=== PATIENT | female | born 2000 | race Caucasian/White ===

== ENCOUNTER 2023-07-23 06:39 | Emergency (ER) | payer MEDICAID, SELFPAY ==
[2023-07-23 06:56] VITALS: BP 151/101; PULSE 81; RESP 18; TEMP 37.1; O2SAT 98; BMI 21.6
[2023-07-23 06:59] LABS: Basophils Percent Auto 0.1 % (0.0-3.0); Hematocrit 44.7 % (33.0-51.0); Hemoglobin* 15.1 gm/dL (12.0-16.0); Immature Granulocytes Pct Auto 0.1 %; Lymphocytes Percent Auto 23.6 % (20-44); Mean Corpuscular HGB Conc 34 gm/dL (32-36); Mean Corpuscular Hemoglobin 30 pg (26-34); Mean Corpuscular Volume 88 fL (80-100); Monocytes Percent Auto 4.5 % (0.0-11.0); Neutrophils Percent Auto 71.7 % (42.0-72.0); Platelet Count* 257 K/uL (140-440); RDW Coefficient of Variation % 12.2 % (11.5-15.5); Red Blood Count 5.08 m/uL (4.00-5.20); White Blood Count* 13.66 K/uL (4.50-11.00)
[2023-07-23 07:01] LABS: Lactate* 1.3 mmol/L (0.5-1.9)
--- NOTE | 2023-07-23 07:06 | ED_ITS ---
HPI - General Adult General Time Seen by Provider: 07:06 Date Seen: 07/23/23 Chief complaint: Nausea/Vomiting Stated complaint: vomiting Time Seen by Provider: 07/23/23 06:42 Source: patient and RN notes reviewed Mode of arrival: ambulatory Limitations: no limitations History of Present Illness HPI narrative: This 23yo female with history of cyclic vomiting comes in with 4-5 days of vomiting, states that this is consistent with her history of this disorder. Last used marijuana 5 days ago. She was seen in [place] on Wednesday, returned Wednesday. On Wednesday she got a L of normal saline and was sent home. When she returned on Wednesday, they told her there was nothing further for them to do in she was given a prescription for Reglan. She has tried the Reglan and she feels it is not really helping, maybe even making things worse when she is trying to take it on an empty stomach. The Zofran 0 DT is really a difficult for her when she is in the midst of this because when she is vomiting, stating trying to take this medicine to have it dissolving her mouth on a dry mouth that it makes it worse. She has not had any fevers but at times is felt chilled and has had shakes at times with this. She has had no bowel movement the last couple of days but has not been able to eat. She has had no abdominal pain but does note that she is feeling a bit sore from vomiting. There has been no blood in the vomit. She is on oral contraceptives. Related Data Home Medications Medication Instructions Recorded Confirmed metoclopramide HCl 10 mg tablet 10 mg PO QID 07/23/23 07/23/23 Previous Rx's Medication Instructions Recorded olanzapine 5 mg tablet 5 mg PO BID PRN #10 tabs 07/23/23 Allergies Allergy/AdvReac Type Severity Reaction Status Date / Time amoxicillin AdvReac Verified 07/23/23 06:59 Review of Systems Status of ROS: Reports: 6 or more systems reviewed and unremarkable except as noted in History and below [facility] Medical History Cyclic vomiting syndrome ?R11.15 - Cyclical vomiting syndrome unrelated to migraine (ICD-10) Social History Smoking Status: Current every day smoker Second hand tobacco smoke exposure: Yes How often do you have a drink containing alcohol: never AUDIT-C Alcohol total score: 0 Non-prescribed substance use: marijuana (any form) Exam Const: Vital Signs, click to edit/add: Vital Signs - 24 hr 07/23/23 06:56 Temperature 98.8 F Pulse Rate [Pulse Oximeter] 81 Respiratory Rate 18 Blood Pressure [Ri ght Upper Arm] 151/101 H Pulse Oximetry 98 Oxygen Delivery Me thod Room Air This is a very pleasant 23-year-old female. She was initially in the bathroom when I attempted to go see her at 1st. Did hear her retch a bit. She is very pleasant, no apparent distress. She has conjugate gaze, sq appear clear. Symmetrical facial function. Lungs are clear, good air entry, no wheezing or crackles. CV regular rate and rhythm, no murmur, normal S1-S2, no S3-S4. Abdomen is flat, soft, bowel sounds present, no organomegaly, no distention, nontender, no rebound or guarding. She is ambulatory in the ED of her own accord. Skin visualized without rash. Documenting provider has reviewed patient's vital signs: yes Course Course ED Course: Patient is aware that we really truly have no ?fix? for this. We can try to treat her symptoms, obviously give her IV fluids. Nursing staff did collect urine, noted it looked pretty concentrated. I have ordered a 2 L of fluids. On discussion of different treatment she has tried, she really does actually like Zyprexa. She feels that most IV treatments do help her. She states the problem lies is when she goes home and has to try to take something orally. She is not expecting hospitalization, we did discuss that we do not hospitalize unless there is an indication like significant electrolyte disturbances. Will confirm negative status. Will get basic labs. Likely discharge to home with recommendations for avoidance of further THC/marijuana. Patient has benign clinical exam, do not feel any abdominal imaging is necessary. Reevaluation(s) Time of Reevaluation #1: 07:56 Reevaluation #1: Reviewed with patient her labs are reassuring. Urine is concentrated in she is getting fluids. She just got the Zyprexa, is going to try to rest, maybe already feels a bit better. She will be getting a 2 L of fluids. Will have her rest for the time being and likely discharge to home. Will have nursing staff report the oncoming provider if her nausea and vomiting are not controlled with the Zyprexa. Vital Signs Vital signs: Initial Vital Signs Temperature 98.8 F 07/23/23 06:56 Temperature Source Temporal Artery Scan 07/23/23 06:56 Pulse Rate 81 07/23/23 06:56 Respiratory Rate 18 07/23/23 06:56 Blood Pressure 151/101 H 07/23/23 06:56 Blood Pressure Mean 117 H 07/23/23 06:56 Blood Pressure Position Sitting 07/23/23 06:56 Pulse Oximetry 98 07/23/23 06:56 Oxygen Delivery Method Room Air 07/23/23 06:56 Vital Signs Temperature 98.8 F 07/23/23 06:56 Pulse Rate 81 07/23/23 06:56 Respiratory Rate 18 07/23/23 06:56 Blood Pressure 151/101 H 07/23/23 06:56 Pulse Oximetry 98 07/23/23 06:56 Oxygen Delivery Method Room Air 07/23/23 06:56 Temperature 98.8 F 07/23/23 06:56 Pulse Rate 82 07/23/23 09:24 Respiratory Rate 12 07/23/23 09:24 Blood Pressure 108/72 07/23/23 09:24 Pulse Oximetry 100 07/23/23 09:24 Oxygen Delivery Method Room Air 07/23/23 09:24 Medications Administered Medications: Discontinued Medications Generic Name Dose Route Start Last Admin Trade Name Freq PRN Reason Stop Dose Admin Sodium Chloride 1,000 mls @ 1,000 mls/hr 07/23/23 07:06 07/23/23 08:14 0.9 % Sodium Chloride 1000 Ml IV 07/23/23 08:05 Infused .Q1H JOSLYN Infusion Lactated Ringer's 1,000 mls @ 1,000 mls/hr 07/23/23 07:28 07/23/23 09:27 Lactated Ringers 1000 Ml IV 07/23/23 08:27 Infused .Q1H ONE Infusion Olanzapine 5 mg 07/23/23 07:15 07/23/23 07:25 Olanzapine 5 Mg/Ml Inj IVP 07/23/23 07:16 5 mg ONCE ONE Administration Medical Decision Making Lab Data Lab results reviewed: Yes I reviewed the patient's lab results Labs: Lab Results 07/23/23 07/23/23 Range/Units 06:50 07:15 WBC 13.66 H (4.50-11.00) K/uL RBC 5.08 (4.00-5.20) m/uL Hgb 15.1 (12.0-16.0) gm/dL Hct 44.7 (33.0-51.0) % MCV 88 (80-100) fL MCH 30 (26-34) pg MCHC 34 (32-36) gm/dL RDW Coeff of Dominga 12.2 (11.5-15.5) % Plt Count 257 (140-440) K/uL Neut % (Auto) 71.7 (42.0-72.0) % Lymph % (Auto) 23.6 (20-44) % [place] % (Auto) 4.5 (0.0-11.0) % Eos % (Auto) 0.0 (0.0-7.0) % Baso % (Auto) 0.1 (0.0-3.0) % Neut # (Auto) 9.80 H (1.7-7.0) K/uL Lymph # (Auto) 3.20 H (0.90-2.90) K/uL [place] # (Auto) 0.60 (0.00-0.90) K/UL Eos # (Auto) 0.00 (0.00-0.50) K/uL Baso # (Auto) 0.00 (0.00-0.30) K/uL Abs Immat Gran (auto) 0.00 (0.00-0.30) K/uL Imm/Tot Granulo (auto) 0.1 % Sodium 137 (135-149) mmol/L Potassium 3.5 L (3.6-5.1) mmol/L Chloride 99 (96-114) mmol/L Carbon Dioxide 23 (20-32) mmol/L Anion Gap 15 (7-15) mEq/L BUN 21 (5-24) mg/dL Creatinine 0.7 (0.5-1.5) mg/dL Estimated Creat Clear 111.51 Estimated GFR 124 ml/min Glucose 126 H (60-115) mg/dL Lactate 1.3 (0.5-1.9) mmol/L Calcium 10.0 (8.4-10.6) mg/dL Urine Color Dark yellow (Yellow) Urine Appearance Slightly Cloudy A (Clear) Urine pH 6.0 (5.0-8.5) Ur Specific [place] >= 1.030 (1.000-1.030) Urine Protein 2+ A (Negative) Urine Glucose (UA) Negative (Negative) Urine Ketones 1+ A (Negative) Urine Blood 1+ A (Negative) Urine Nitrite Negative (Negative) Urine Bilirubin 1+ A (Negative) Urine Urobilinogen 1.0 (0.2-1.0) Ur Leukocyte Esterase Negative (Negative) Urine RBC 2-5 A (0-2) Urine WBC 0-2 (0-5) Ur Squamous Epith Cells Many A (None-Few) Urine Bacteria Moderate A (None) Urine HCG, Qual Negative (Negative) Urine Opiates Screen Negative (Negative) Ur Oxycodone Screen Negative (Negative) Urine Methadone Screen Negative (Negative) Ur Barbiturates Screen Negative (Negative) U Tricyclic Antidepress Negative (Negative) Ur Phencyclidine Scrn Negative (Negative) Ur Amphetamines Screen Negative (Negative) U Methamphetamines Scrn Negative (Negative) U Benzodiazepines Scrn Negative (Negative) Urine Cocaine Screen Negative (Negative) U Marijuana (THC) Screen POSITIVE A (Negative) Ur Drug Screen Comment See Note Discharge Plan Discharge Clinical Impression: Cyclical vomiting syndrome Patient Disposition: Home, Self-Care Condition: Stable Instructions: Cyclic Vomiting Syndrome (ED) Additional Instructions: Can try the Zyprexa at home and see if this benefit you further. Encourage you to take small sips of fluids, 1-2 tsp every 5-10 minutes while awake. This approach with small amounts of liquids may help so that you do not have any significant volume in your stomach and thus, maybe less likely to vomit. May move back to solids or your regular diet as you feel better. You really need to refrain from THC/marijuana use. Do recommend that you follow-up with your primary care provider within the next couple of days, discussed possible further medicines to have on hand to help you manage this if you should have further episodes. Activity Level: Activity as Tolerated Prescriptions: New olanzapine 5 mg tablet 5 mg PO BID PRNQty: 10 0RF No Action metoclopramide HCl 10 mg tablet 10 mg PO QID Stand Alone Forms: virtual tweens ltdth Info Instructions
[2023-07-23 07:07] LABS: Slide Review Reflex No
[2023-07-23 07:22] LABS: Chloride* 99 mmol/L (96-114); Potassium* 3.5 mmol/L (3.6-5.1); Sodium* 137 mmol/L (135-149)
[2023-07-23 07:24] LABS: Creatinine* 0.7 mg/dL (0.5-1.5); Est. Creatinine Clearance* 111.51; Estimated Glomerular Filt Rate 124 ml/min
[2023-07-23] MEDS: 0.9 % SODIUM CHLORIDE 1000 ml 1,000 ML IV (07:24)
[2023-07-23 07:25] LABS: Anion Gap 15 mEq/L (7-15); Blood Urea Nitrogen* 21 mg/dL (5-24); Carbon Dioxide* 23 mmol/L (20-32); Glucose* 126 mg/dL (60-115)
[2023-07-23] MEDS: OLANZapine 5 MG/ML inj IVP (07:25)
[2023-07-23 07:27] LABS: Appearance Urine Slightly Cloudy (Clear); Bilirubin Urine 1+ (Negative); Blood Urine 1+ (Negative); Color Urine Dark yellow (Yellow); Glucose Urine Negative (Negative); Ketones Urine 1+ (Negative); Leukocyte Esterase Urine Negative (Negative); Nitrite Urine Negative (Negative); Protein Urine 2+ (Negative); Specific Gravity Urine >= 1.030 (1.000-1.030)
[2023-07-23 07:28] LABS: Ur HCG Qualitative* Negative (Negative)
[2023-07-23 07:31] LABS: Amphetamine Screen Urine Negative (Negative); Barbiturate Screen Urine Negative (Negative); Benzodiazepines Screen Urine Negative (Negative); Cannabinoid Screen Urine POSITIVE (Negative); Cocaine Screen Urine Negative (Negative); Methadone Screen Urine Negative (Negative); Methamphetamines Screen Urine Negative (Negative); Opiate Screen Urine Negative (Negative); Oxycodone Screen Urine Negative (Negative); Phencyclidine Screen Urine Negative (Negative); Tricyclic Antidepressant Urine Negative (Negative)
--- OUTSIDE RECORDS SUMMARY | 2023-07-23 07:31 | XMS_ITS | Referral Summary ---
Author Name Unknown Organization [facility] Address [address] [place] [id number] Care Team Providers Care Benefits Technician Name Role Phone No Ref-Primary, Physician Primary Care Provider Allergies Active Allergy Reactions Criticality Noted Date Comments Amoxicillin 08/11/2016 Medications Medication Sig Dispensed Refills Start Date End Date Status Etonogestrel (NEXPLANON SC) 0 Active metoclopramide (REGLAN) 10 MG tablet Take 1 tablet (10 mg) by mouth 4 times daily (before meals and nightly) 20 tablet 0 03/04/2021 Active promethazine (PHENERGAN) [address] 1 suppository (25 mg) rectally every 6 hours as needed for nausea 10 suppository 0 03/05/2021 Active Immunizations Name Administration Dates Next Due DTAP (<7y) 02/06/2004, 1,1999,1999,1999 HEPATITIS A (PEDS 12M-18Y) 08/06/2015 HIB (PRP-T) 06/28/2000,03/02/2000,1999 HPV9 05/05/2017,08/06/2015,07/11/2013 Hepatitis B, Peds 1999, 9,1999,1998 Influenza Vaccine >6 months,quad, PF 05/05/2017 MMR 02/06/2004,06/28/2000 Meningococcal ACWY (Menactra??) 01/09/2011 Meningococcal ACWY (Menveo??) 08/06/2015 Poliovirus, inactivated (IPV) 02/06/2004 ,06/28/2000,1999,1998 TDAP Vaccine (Adacel) 01/09/2011 Varicella 08/29/2009,03/02/2000 Social History Tobacco Use Types Packs/Day Years Used Date Smoking Tobacco: Every Day Cigarettes 0.5 Smokeless Tobacco: Never Alcohol Use Standard Drinks/Week Comments Yes 0 (1 standard drink = 0.6 oz pur e alcohol) Adolescent Education Answer Date Record ed Getting School Help Needed Not on file 03/29 Sex and Gender Information Value Date Recorded Sex Assigned at Not on file Gender Identity Not on file Sexual Orientation Not on file Last Filed Vital Signs Vital Sign Reading Time Taken Comments Blood Pressure 122/77 03/06/2021 10:17 AM CDT Pulse 71 03/06/2021 1:00 PM CDT Temperature 36.9 ??C (98.4 ??F) 03/06/2021 10:17 AM C DT Respiratory Rate 14 03/06/2021 1:00 PM CDT Oxygen Saturation 98% 03/06/2021 10:17 AM CDT Inhaled Oxygen Concentration - - Weight 73.5 kg (162 lb) 03/03/2021 7:04 PM CDT Height 165.1 cm (5' 5) 03/03/2021 7:04 PM CDT Body Mass Index 26.96 03/03/2021 7:04 PM CDT Plan of Treatment Not on file Care Teams Benefits Technician Relationship Specialty Start Date End Date No Ref-Primary, Physician PCP - General 03/26/17
--- OUTSIDE RECORDS SUMMARY | 2023-07-23 07:31 | XMS_ITS | Encounter Summary ---
Author Name Unknown Organization [facility] Address [address] [place] [id number] Care Team Providers Care Modern Dancer Name Role Phone No Ref-Primary, Physician Primary Care Provider Encounter Details Date Type Department Care Team (Late st Contact Info) Description 03/20/2021 Documentation Only INTERFACED REPORT Unknown, Provider Social History Tobacco Use Types Packs/Day Years Used Date Smoking Tobacco: Every Day Cigarettes 0.5 Smokeless Tobacco: Never Alcohol Use Standard Drinks/Week Comments Yes 0 (1 standard drink = 0.6 oz pur e alcohol) Sex and Gender Information Value Date Recorded Sex Assigned at Not on file Gender Identity Not on file Sexual Orientation Not on file COVID-19 Exposure Response Date Recorded In the last month, have you been in contact with someone who was confirmed or suspected to have Coronavirus / COVID-19? No / Unsure 03/05/2021 2:41 PM CDT documented as of this encounter Plan of Treatment Not on file documented as of this encounter Visit Diagnoses Not on filedocumented in this encounter Care Teams Modern Dancer Relationship Specialty Start Date End Date No Ref-Primary, Physician PCP - General 03/26/17 documented as of this encounter
--- OUTSIDE RECORDS SUMMARY | 2023-07-23 07:31 | XMS_ITS | Encounter Summary ---
Author Name Unknown Organization [facility] Address [address] [place] [address] Care Team Providers Care Personal Care Attendant Name Role Phone No Ref-Primary, Physician Primary Care Provider Encounter Details Date Type Department Care Team (Late st Contact Info) Description 03/04/2021 Documentation Only INTERFACED REPORT Unknown, Provider Social [...] on filedocumented in this encounter Care Teams Personal Care Attendant Relationship Specialty Start Date End Date No Ref-Primary, Physician PCP - General 03/26/17 documented as of this encounter
--- OUTSIDE RECORDS SUMMARY | 2023-07-23 07:31 | XMS_ITS | Clinical Summary ---
Author Name Unknown Organization [facility] Address [address] [place] [id number] Care Team Providers Care Silk Spreader Name Role Phone No Ref-Primary, Physician Primary [...] 03/03/2021 7:04 PM CDT Plan of Treatment Health Maintenance Due Date Last Done Comments ADVANCE CARE PLANNING 1999 ANNUAL REVIEW OF HM ORDERS 1999 CHLAMYDIA SCREENING 1999 COVID-19 Vaccine (#1) 1999 Pneumococcal Vaccine: Pediatrics (0 to 5 Years) and At-Risk Patients (6 to 64 Years) (1 of 2 - PCV) 2005 HIV SCREENING 2014 HEPATITIS C SCREENING 2017 YEARLY PREVENTIVE VISIT 09/16/2018 09/16/2017 PAP 02/13/2020 INFLUENZA VACCINE (#1) 2023 8, 05/05/2017, 05/05/2017, Additional history exists PHQ-2 (once per calendar year) 2023 DTAP/TDAP/TD IMMUNIZATION (8 - Td or Tdap) 05/15/2030 05/15/2020, 01/09/2011, 02/06/2004, Additional history exists IPV IMMUNIZATION Completed 02/06/2004, , 1999, Additional history exists MENINGITIS IMMUNIZATION Completed 08/06/2015, 01/09 HPV IMMUNIZATION Completed 05/05/2017, , 09/08/2013, Additional history exists HEPATITIS B IMMUNIZATION Completed 019, 1999, 1999, Additional history exists RSV MONOCLONAL ANTIBODY Aged Out No l onger eligible based on patient's age to complete this topic Care Teams Silk Spreader Relationship Specialty Start Date End Date No Ref-Primary, Physician PCP - General 03/26/17
--- OUTSIDE RECORDS SUMMARY | 2023-07-23 07:31 | XMS_ITS | Patient Health Record ---
Author Name Unknown Organization [facility] Address [address] [place] [address] Care Team Providers Care Corporate Pilot Name Role Phone Kwmae Simon Primary Care Provider Unavailab le ALLERGIES Allergen (clinical drug ingredient) Drug/Non Drug Allergy documented on EMR Reaction Allergy Type Onset Date Status amoxicillin Amoxicillin Childhood Allergy Drug Allergy Active REASON FOR REFERRAL No Information MEDICATIONS Medication SIG (Take, Route, Fr equency, Duration) Notes Start Date End Date Status Adderall 20 MG 1 tablet Orally once daily Active SOCIAL HISTORY Tobacco Use: Social History Observation Description Date Details (start date - stop date) Current Smoker NA - NA Sex Assigned At : Social History Observation Description Sex Assigned At Unknown Tobacco Use/Smoking Question Answer Notes Are you a current smoker PROBLEMS Problem Type ICD Code Onset Dates Problem Status W/U Status Risk SNOMED Code Notes Problem Abnormal uterine bleeding (AUB) (N93.9) Active confirmed [id number] PLAN OF TREATMENT No Information Insurance Providers Payer Name Payer Address Payer Phone Subscriber Number Group Number Insured Name Patient Relationship to Insured Coverage Start Date Coverage End Date UMR (INS BILL) [address] [address] [place] [address] [id number] [phone] Selma Hoffman Self - patient is the insured MEDICAL (GENERAL) HISTORY Medical History History ICD Code ADHD Surgical History Surgery Date(Month/Year) Left Middle Finger Fx 2017
[2023-07-23 07:41] LABS: WBC Urine 0-2 (0-5)
[2023-07-23 07:42] LABS: Bacteria Urine Moderate; Squamous Epithelial Cell Urine Many (None-Few)
[2023-07-23] MEDS: LACTATED RINGERS 1000 ML 1,000 ML IV (08:13)
[2023-07-23 08:33] VITALS: O2SAT 99
[2023-07-23 08:34] VITALS: BP 112/67; PULSE 82; O2SAT 100
[2023-07-23 09:24] VITALS: BP 108/72; PULSE 82; RESP 12; O2SAT 100
== END 2023-07-23 09:36 | disposition home or self-care (01) ==
PROVIDERS: Emergency Provider Family Medicine
DX: R11.15 Cyclical vomiting syndrome unrelated to migraine (principal)
CPT/HCPCS: 36415; 80048; 80306; 81001; 81025; 83605; 85025; 87086; 94761; 96374; 99283; 99284; J7030; J7120

== ENCOUNTER 2023-08-07 06:38 | Emergency (ER) | payer MEDICAID, SELFPAY ==
[2023-08-07 06:44] VITALS: BP 161/98; PULSE 89; RESP 18; TEMP 37.1; O2SAT 97; BMI 21.6
--- NOTE | 2023-08-07 07:05 | ED_ITS ---
HPI - Nausea/Vomiting/Diarrhea General Chief complaint: Nausea/Vomiting <Benji Vann MD - Last Filed: 08/07/23 07:12> Stated complaint: nausea vomiting <Benji Vann MD - Last Filed: 08/07/23 07:12> Time Seen by Provider: 08/07/23 06:43 <Benji Vann MD - Last Filed: 08/07/23 07:12> History of Present Illness HPI Narrative: Patient is a 23-year-old woman with cyclic vomiting syndrome who is not had any marijuana consumption since she was here last approximately 10 days ago. Over last several days she has had nausea vomiting without diarrhea. She has had no fevers no chills no night sweats. She has no dysuria. She states that she can not keep anything down and that her vomiting is refractory to outpatient therapy. She feels very dehydrated. <Benji Vann MD - Last Filed: 08/07/23 07:12> Related Data Home medications: Home Medications Medication Instructions Recorded Confirmed metoclopramide HCl 10 mg tablet 10 mg PO QID 07/23/23 07/23/23 Previous Rx's Medication Instructions Recorded olanzapine 5 mg tablet 5 mg PO BID PRN #10 tabs 07/23/23 <Benji Vann MD - Last Filed: 08/07/23 07:12> Allergies/Adverse reactions: Allergies Allergy/AdvReac Type Severity Reaction Status Date / Time amoxicillin AdvReac Verified 07/23/23 06:59 <Benji Vann MD - Last Filed: 08/07/23 07:12> Review of Systems Status of ROS: Reports: 10 or more systems reviewed and unremarkable except as noted in History and below <Benji Vann MD - Last Filed: 08/07/23 07:12> [facility] Medical History: Medical History Cyclic vomiting syndrome ?R11.15 - Cyclical vomiting syndrome unrelated to migraine (ICD-10) <Benji Vann MD - Last Filed: 08/07/23 07:12> Social History: Social History Smoking Status: Current every day smoker Second hand tobacco smoke exposure: Yes How often do you have a drink containing alcohol: never AUDIT-C Alcohol total score: 0 Non-prescribed substance use: marijuana (any form) <Benji Vann MD - Last Filed: 08/07/23 07:12> Exam Narrative: Exam Narrative: EXAM GENERAL: Patient appears to be in moderate distress with dehydration. EYES: No scleral icterus. LYMPH: No supraclavicular or cervical lymphadenopathy. SKIN: Visible skin seen during exam normal or with benign process only. EXT: No dependent lower extremity pedal edema. HEART: Regular rate and rhythm with no murmurs, rubs, or gallops. LUNGS: Clear to auscultation bilaterally with no crackles or wheezes. ABD: Soft, non tender, non distended. PSYCH: Good eye contact, speech is not pressured. <Benji Vann MD - Last Filed: 08/07/23 07:12> Const: Vital Signs, click to edit/add: Vital Signs - 24 hr 08/07/23 06:44 Temperature 98.8 F Pulse Rate [Pulse Oximeter] 89 Respiratory Rate 18 Blood Pressure [Ri ght Upper Arm] 161/98 H Pulse Oximetry 97 Oxygen Delivery Me thod Room Air <Benji Vann MD - Last Filed: 08/07/23 07:12> Vital Signs, click to edit/add: Vital Signs - 24 hr 08/07/23 06:44 Temperature 98.8 F Pulse Rate [Pulse Oximeter] 89 Respiratory Rate 18 Blood Pressure [Ri ght Upper Arm] 161/98 H Pulse Oximetry 97 Oxygen Delivery Me thod Room Air <Jones De La Rosa DO - Last Filed: 08/07/23 09:42> Course Course ED Course: Will start with CBC CMP amylase and begin hydration with normal saline. Did give her 4 mg of IV Zofran to start with. <Benji Vann MD - Last Filed: 08/07/23 07:12> Vital Signs Vital signs: Initial Vital Signs Temperature 98.8 F 08/07/23 06:44 Temperature Source Temporal Artery Scan 08/07/23 06:44 Pulse Rate 89 08/07/23 06:44 Respiratory Rate 18 08/07/23 06:44 Blood Pressure 161/98 H 08/07/23 06:44 Blood Pressure Mean 119 H 08/07/23 06:44 Blood Pressure Position Sitting 08/07/23 06:44 Pulse Oximetry 97 08/07/23 06:44 Oxygen Delivery Method Room Air 08/07/23 06:44 Vital Signs Temperature 98.8 F 08/07/23 06:44 Pulse Rate 89 08/07/23 06:44 Respiratory Rate 18 08/07/23 06:44 Blood Pressure 161/98 H 08/07/23 06:44 Pulse Oximetry 97 08/07/23 06:44 Oxygen Delivery Method Room Air 08/07/23 06:44 Temperature 98.8 F 08/07/23 06:44 Pulse Rate 89 08/07/23 06:44 Respiratory Rate 18 08/07/23 06:44 Blood Pressure 161/98 H 08/07/23 06:44 Pulse Oximetry 97 08/07/23 06:44 Oxygen Delivery Method Room Air 08/07/23 06:44 <Benji Vann MD - Last Filed: 08/07/23 07:12> Initial Vital Signs Temperature 98.8 F 08/07/23 06:44 Temperature Source Temporal Artery Scan 08/07/23 06:44 Pulse Rate 89 08/07/23 06:44 Respiratory Rate 18 08/07/23 06:44 Blood Pressure 161/98 H 08/07/23 06:44 Blood Pressure Mean 119 H 08/07/23 06:44 Blood Pressure Position Sitting 08/07/23 06:44 Pulse Oximetry 97 08/07/23 06:44 Oxygen Delivery Method Room Air 08/07/23 06:44 Vital Signs Temperature 98.8 F 08/07/23 06:44 Pulse Rate 89 08/07/23 06:44 Respiratory Rate 18 08/07/23 06:44 Blood Pressure 161/98 H 08/07/23 06:44 Pulse Oximetry 97 08/07/23 06:44 Oxygen Delivery Method Room Air 08/07/23 06:44 Temperature 98.8 F 08/07/23 06:44 Pulse Rate 89 08/07/23 06:44 Respiratory Rate 18 08/07/23 06:44 Blood Pressure 161/98 H 08/07/23 06:44 Pulse Oximetry 97 08/07/23 06:44 Oxygen Delivery Method Room Air 08/07/23 06:44 <Jones De La Rosa DO - Last Filed: 08/07/23 09:42> Medications Administered Medications: Discontinued Medications Generic Name Dose Route Start Last Admin Trade Name Freq PRN Reason Stop Dose Admin Haloperidol Lactate 5 mg 08/07/23 08:28 08/07/23 08:46 Haloperidol 5 Mg/Ml Inj IV 08/07/23 08:29 5 mg ONCE ONE Administration Sodium Chloride 1,000 mls @ 1,000 mls/hr 08/07/23 07:04 08/07/23 08:47 0.9 % Sodium Chloride 1000 Ml IV 08/07/23 08:03 Infused .Q1H JOSLYN Infusion Lactated Ringer's 1,000 mls @ 1,000 mls/hr 08/07/23 08:28 08/07/23 08:46 Lactated Ringers 1000 Ml IV 08/07/23 09:27 1,000 mls/hr .Q1H ONE Administration Ondansetron HCl 4 mg 08/07/23 07:03 08/07/23 07:36 Ondansetron 2 Mg/Ml Inj IVP 08/07/23 07:04 4 mg ONCE ONE Administration <Benji Vann MD - Last Filed: 08/07/23 07:12> Discontinued Medications Generic Name Dose Route Start Last Admin Trade Name Freq PRN Reason Stop Dose Admin Haloperidol Lactate 5 mg 08/07/23 08:28 08/07/23 08:46 Haloperidol 5 Mg/Ml Inj IV 08/07/23 08:29 5 mg ONCE ONE Administration Sodium Chloride 1,000 mls @ 1,000 mls/hr 08/07/23 07:04 08/07/23 08:47 0.9 % Sodium Chloride 1000 Ml IV 08/07/23 08:03 Infused .Q1H JOSLYN Infusion Lactated Ringer's 1,000 mls @ 1,000 mls/hr 08/07/23 08:28 08/07/23 08:46 Lactated Ringers 1000 Ml IV 08/07/23 09:27 1,000 mls/hr .Q1H ONE Administration Ondansetron HCl 4 mg 08/07/23 07:03 08/07/23 07:36 Ondansetron 2 Mg/Ml Inj IVP 08/07/23 07:04 4 mg ONCE ONE Administration <Jones De La Rosa DO - Last Filed: 08/07/23 09:42> MDM - Nausea/Vomiting/Diarrhea MDM Narrative Medical decision making narrative: Patient was signed out to me pending lab work. Lab work was unremarkable other than a potassium of 3.1. I did give her another L of fluid and this time use lactated Ringer's. Patient was given Haldol for her nausea as she was still symptomatic. After the Haldol she was feeling better. I initially ordered oral potassium for the patient but she is hesitant to take it at this time as she is finally feeling better and is for a showed does get nauseated again. I explained to her that she had low potassium and that she should eat something to replenished it. She states she understands and will try to eat high potassium foods at home. This potassium was only 3.1 I am comfortable sending her home without being replenished here in the emergency department. Patient was discharged. <Jones De La Rosa DO - Last Filed: 08/07/23 09:42> Lab Data Labs: Lab Results 08/07/23 08/07/23 Range/Units 07:03 07:30 WBC 8.78 (4.50-11.00) K/uL RBC 4.75 (4.00-5.20) m/uL Hgb 14.1 (12.0-16.0) gm/dL Hct 42.7 (33.0-51.0) % MCV 90 (80-100) fL MCH 30 (26-34) pg MCHC 33 (32-36) gm/dL RDW Coeff of Dominga 12.9 (11.5-15.5) % Plt Count 273 (140-440) K/uL Neut % (Auto) 73.4 H (42.0-72.0) % Lymph % (Auto) 22.2 (20-44) % Izard % (Auto) 3.9 (0.0-11.0) % Eos % (Auto) 0.2 (0.0-7.0) % Baso % (Auto) 0.1 (0.0-3.0) % Neut # (Auto) 6.40 (1.7-7.0) K/uL Lymph # (Auto) 1.95 (0.90-2.90) K/uL Izard # (Auto) 0.30 (0.00-0.90) K/UL Eos # (Auto) 0.02 (0.00-0.50) K/uL Baso # (Auto) 0.01 (0.00-0.30) K/uL Abs Immat Gran (auto) 0.02 (0.00-0.30) K/uL Imm/Tot Granulo (auto) 0.2 % Sodium 138 (135-149) mmol/L Potassium 3.1 L (3.6-5.1) mmol/L Chloride 100 (96-114) mmol/L Carbon Dioxide 26 (20-32) mmol/L Anion Gap 12 (7-15) mEq/L BUN 19 (5-24) mg/dL Creatinine 0.6 (0.5-1.5) mg/dL Estimated Creat Clear 130.10 Estimated GFR 128 ml/min Glucose 116 H (60-115) mg/dL Calcium 10.0 (8.4-10.6) mg/dL Total Bilirubin 1.4 (0.1-1.5) mg/dL AST 26 (12-35) U/L ALT 46 H (4-35) U/L Alkaline Phosphatase 69 (40-150) U/L Total Protein 9.2 H (6.0-8.3) g/dL Albumin 5.1 H (3.3-5.0) g/dL Amylase 74 (18-89) U/L HCG, Qual Negative (Negative) <Benji Vann MD - Last Filed: 08/07/23 07:12> Lab Results 08/07/23 08/07/23 Range/Units 07:03 07:30 WBC 8.78 (4.50-11.00) K/uL RBC 4.75 (4.00-5.20) m/uL Hgb 14.1 (12.0-16.0) gm/dL Hct 42.7 (33.0-51.0) % MCV 90 (80-100) fL MCH 30 (26-34) pg MCHC 33 (32-36) gm/dL RDW Coeff of Dominga 12.9 (11.5-15.5) % Plt Count 273 (140-440) K/uL Neut % (Auto) 73.4 H (42.0-72.0) % Lymph % (Auto) 22.2 (20-44) % Izard % (Auto) 3.9 (0.0-11.0) % Eos % (Auto) 0.2 (0.0-7.0) % Baso % (Auto) 0.1 (0.0-3.0) % Neut # (Auto) 6.40 (1.7-7.0) K/uL Lymph # (Auto) 1.95 (0.90-2.90) K/uL Izard # (Auto) 0.30 (0.00-0.90) K/UL Eos # (Auto) 0.02 (0.00-0.50) K/uL Baso # (Auto) 0.01 (0.00-0.30) K/uL Abs Immat Gran (auto) 0.02 (0.00-0.30) K/uL Imm/Tot Granulo (auto) 0.2 % Sodium 138 (135-149) mmol/L Potassium 3.1 L (3.6-5.1) mmol/L Chloride 100 (96-114) mmol/L Carbon Dioxide 26 (20-32) mmol/L Anion Gap 12 (7-15) mEq/L BUN 19 (5-24) mg/dL Creatinine 0.6 (0.5-1.5) mg/dL Estimated Creat Clear 130.10 Estimated GFR 128 ml/min Glucose 116 H (60-115) mg/dL Calcium 10.0 (8.4-10.6) mg/dL Total Bilirubin 1.4 (0.1-1.5) mg/dL AST 26 (12-35) U/L ALT 46 H (4-35) U/L Alkaline Phosphatase 69 (40-150) U/L Total Protein 9.2 H (6.0-8.3) g/dL Albumin 5.1 H (3.3-5.0) g/dL Amylase 74 (18-89) U/L HCG, Qual Negative (Negative) <Jones De La Rosa DO - Last Filed: 08/07/23 09:42> Discharge Plan Discharge Clinical Impression: Nausea & vomiting Qualifiers: Vomiting type: unspecified Qualified Code(s): R11.2 - Nausea with vomiting, unspecified <Benji Vann MD - Last Filed: 08/07/23 07:12> Patient Disposition: Home, Self-Care <Benji Vann MD - Last Filed: 08/07/23 07:12> Condition: Improved <Benji Vann MD - Last Filed: 08/07/23 07:12> Instructions: Hypokalemia (ED), Acute Nausea and Vomiting (ED) <Benji Vann MD - Last Filed: 08/07/23 07:12> Additional Instructions: Make sure to eat high potassium foods such as high potassium foods such as carrots, leafy green bananas, apples etc. take her home nausea medication. Return to emergency department new or worsening symptoms <Benji Vann MD - Last Filed: 08/07/23 07:12> Prescriptions: No Action metoclopramide HCl 10 mg tablet 10 mg PO QID olanzapine 5 mg tablet 5 mg PO BID PRNQty: 10 0RF <Benji Vann MD - Last Filed: 08/07/23 07:12> Follow Up/Referrals: Provider,Not a Local [Primary Care Provider] - <Benji Vann MD - Last Filed: 08/07/23 07:12> Stand Alone Forms: [employer] Info Instructions <Benji Vann MD - Last Filed: 08/07/23 07:12>
[2023-08-07] MEDS: ONDANSETRON 2 MG/ML inj 4 MG IVP (07:36)
[2023-08-07] MEDS: 0.9 % SODIUM CHLORIDE 1000 ml 1,000 ML IV (07:36)
[2023-08-07 07:42] LABS: Basophils Absolute Auto 0.01 K/uL (0.00-0.30); Basophils Percent Auto 0.1 % (0.0-3.0); Eosinophils Absolute Auto 0.02 K/uL (0.00-0.50); Eosinophils Percent Auto 0.2 % (0.0-7.0); Hematocrit 42.7 % (33.0-51.0); Hemoglobin* 14.1 gm/dL (12.0-16.0); Immature Granulocytes Abs Auto 0.02 K/uL (0.00-0.30); Immature Granulocytes Pct Auto 0.2 %; Lymphocytes Absolute Auto 1.95 K/uL (0.90-2.90); Lymphocytes Percent Auto 22.2 % (20-44); Mean Corpuscular HGB Conc 33 gm/dL (32-36); Mean Corpuscular Hemoglobin 30 pg (26-34); Mean Corpuscular Volume 90 fL (80-100); Monocytes Percent Auto 3.9 % (0.0-11.0); Neutrophils Percent Auto 73.4 % (42.0-72.0); Platelet Count* 273 K/uL (140-440); RDW Coefficient of Variation % 12.9 % (11.5-15.5); Red Blood Count 4.75 m/uL (4.00-5.20); White Blood Count* 8.78 K/uL (4.50-11.00)
[2023-08-07 07:48] LABS: Slide Review Reflex No
[2023-08-07 07:55] LABS: Albumin* 5.1 g/dL (3.3-5.0); Chloride* 100 mmol/L (96-114); Sodium* 138 mmol/L (135-149)
[2023-08-07 07:56] LABS: Potassium* 3.1 mmol/L (3.6-5.1)
[2023-08-07 07:57] LABS: Amylase* 74 U/L (18-89)
[2023-08-07 07:58] LABS: Alanine Aminotransferase* 46 U/L (4-35); Alkaline Phosphatase* 69 U/L (40-150); Anion Gap 12 mEq/L (7-15); Aspartate Amino Transferase* 26 U/L (12-35); Bilirubin Total* 1.4 mg/dL (0.1-1.5); Blood Urea Nitrogen* 19 mg/dL (5-24); Carbon Dioxide* 26 mmol/L (20-32); Creatinine* 0.6 mg/dL (0.5-1.5); Estimated Glomerular Filt Rate 128 ml/min; Glucose* 116 mg/dL (60-115); Total Protein* 9.2 g/dL (6.0-8.3)
[2023-08-07 08:16] LABS: HCG Qualitative Serum* Negative (Negative)
[2023-08-07] MEDS: LACTATED RINGERS 1000 ML 1,000 ML IV (08:46)
[2023-08-07] MEDS: HALOPERIDOL 5 MG/ML INJ IV (08:46)
== END 2023-08-07 11:49 | disposition home or self-care (01) ==
PROVIDERS: Internal Medicine; Emergency Provider Student in an Organized Health Care Education/Training Program
DX: R11.2 Nausea with vomiting, unspecified (principal)
CPT/HCPCS: 36415; 80053; 81003; 82150; 84703; 85025; 96361; 96374; 96375; 99283; 99284; J1630; J2405; J7030; J7120

== ENCOUNTER 2024-03-02 06:35 | Emergency (ER) | payer OTHER, SELFPAY ==
[2024-03-02 06:40] VITALS: BP 166/95; PULSE 84; RESP 18; TEMP 36.2; O2SAT 99; BMI 22.8
--- NOTE | 2024-03-02 07:12 | ED.GENADULT ---
HPI - General Adult General Chief complaint: Nausea/Vomiting Stated complaint: Vomiting, weak, dehydrated Time Seen by Provider: 03/02/24 07:10 History of Present Illness HPI narrative: pt reports vomiting since yesterday. Any food or water comes back up. Son is at home and is also sick. Pt reports vomiting every hour. No meds taken at home. 24-year-old young woman presenting to the emergency department with persistent vomiting beginning yesterday. Did have brief bit of diarrhea as well. No diarrhea. No melena or hematochezia noted. No hematemesis noted. She has not had any fever. Son with some similar symptoms. Good deal of abdominal cramping. Is wondering whether not this might be food related. Thirsty. I do see on review of records later that there is past medical of cyclic vomiting. Related Data Home Medications ?Medication ?Instructions ?Recorded ?Confirmed metoclopramide HCl 10 mg tablet 10 mg PO QID 07/23/23 07/23/23 Previous Rx's ?Medication ?Instructions ?Recorded olanzapine 5 mg tablet 5 mg PO BID PRN #10 tabs 07/23/23 Allergies Allergy/AdvReac Type Severity Reaction Status Date / Time amoxicillin AdvReac Verified 07/23/23 06:59 Review of Systems Status of ROS: Reports: 6 or more systems reviewed and unremarkable except as noted in History and below [facility] Medical History Cyclic vomiting syndrome ?R11.15 - Cyclical vomiting syndrome unrelated to migraine (ICD-10) Social History Smoking Status: Current every day smoker Second hand tobacco smoke exposure: Yes How often do you have a drink containing alcohol: never AUDIT-C Alcohol total score: 0 Non-prescribed substance use: marijuana (any form) Exam Narrative: Exam Narrative: Huddled under the covers somewhat position. Oropharynx is sticky without erythema or swelling. Lungs appear to be clear. Heart in regular rate and rhythm. Abdomen is soft diffusely moderately tender. No peritoneal signs. Extremities are well perfused without edema. Skin is warm and dry without apparent rash. Const: Vital Signs, click to edit/add: Vital Signs - 24 hr 03/02/24 06:40 Temperature 97.1 F L Pulse Rate [Left P ulse Oximeter] 84 Respiratory Rate 18 Blood Pressure [Ri ght Upper Arm] 166/95 H Pulse Oximetry 99 Oxygen Delivery Me thod Room Air Documenting provider has reviewed patient's vital signs: yes Course Vital Signs Vital signs: Initial Vital Signs Temperature 97.1 F L 03/02/24 06:40 Temperature Source Temporal Artery Scan 03/02/24 06:40 Pulse Rate 84 03/02/24 06:40 Pulse Rhythm Regular 03/02/24 06:40 Respiratory Rate 18 03/02/24 06:40 Blood Pressure 166/95 H 03/02/24 06:40 Blood Pressure Mean 118 H 03/02/24 06:40 Blood Pressure Position Sitting 03/02/24 06:40 Pulse Oximetry 99 03/02/24 06:40 Oxygen Delivery Method Room Air 03/02/24 06:40 Vital Signs Temperature 97.1 F L 03/02/24 06:40 Pulse Rate 84 03/02/24 06:40 Respiratory Rate 18 03/02/24 06:40 Blood Pressure 166/95 H 03/02/24 06:40 Pulse Oximetry 99 03/02/24 06:40 Oxygen Delivery Method Room Air 03/02/24 06:40 Temperature 97.1 F L 03/02/24 06:40 Pulse Rate 84 03/02/24 06:40 Respiratory Rate 18 03/02/24 06:40 Blood Pressure 166/95 H 03/02/24 06:40 Pulse Oximetry 99 03/02/24 06:40 Oxygen Delivery Method Room Air 03/02/24 06:40 Medications Administered Medications: Generic Name Dose Route Start Last Admin Trade Name Freq PRN Reason Stop Dose Admin Sodium Chloride 1,000 mls @ 1,000 mls/hr 03/02/24 07:55 03/02/24 08:03 0.9 % Sodium Chloride 1000 Ml IV 03/02/24 08:54 1,000 mls/hr .Q1H ONE Administration Discontinued Medications Generic Name Dose Route Start Last Admin Trade Name Freq PRN Reason Stop Dose Admin Sodium Chloride 1,000 mls @ 1,000 mls/hr 03/02/24 07:23 03/02/24 07:34 0.9 % Sodium Chloride 1000 Ml IV 03/02/24 08:22 1,000 mls/hr .Q1H ONE Administration Ondansetron HCl 4 mg 03/02/24 07:23 03/02/24 07:34 Ondansetron 2 Mg/Ml Inj IVP 03/02/24 07:24 4 mg ONCE ONE Administration Medical Decision Making MDM Narrative Medical decision making narrative: This did seem to be gastrointestinal illness with both components of vomiting and diarrhea. Unsure etiology. Swabbing for COVID and influenza given gastrointestinal expressions of both of these. I suppose it is possible there was food ingestion that is contributed. Other differential includes biliary colic, noninfectious cyclic vomiting is noted in record, leaking ovarian cyst or torsion, gastritis. Exam reassuring in part that she is diffusely tender over her abdomen. Due to brief duration of symptoms I am not ordering any labs at this point beyond infectious screening as above. Will focus on rehydration with IV fluids and symptom control otherwise. Initiated on 1 L of normal saline and Zofran. Followed shortly by another L. admittedly starting to feel a little better but, still with some discomfort given ketorolac and hyoscyamine. Swabs were negative. I am anticipating improvement in symptoms and discharge soon but will be handed off at change of shift pending improvement. Medical Records Medical records reviewed: Yes I reviewed the patient's medical records Lab Data Lab results reviewed: Yes I reviewed the patient's lab results Labs: Lab Results 03/02/24 Range/Units 06:44 SARS-CoV-2 (PCR) Negative SARS-CoV-2 (Negative) Influenza Type A (PCR) Negative PCR FLU A (Negative) Influenza Type B (PCR) Negative PCR FLU B (Negative) RSV (PCR) Negative PCR RSV (Negative) Discharge Plan Discharge Clinical Impression: Vomiting, Abdominal cramping, Diarrhea Patient Disposition: Home, Self-Care Condition: Improved Additional Instructions: Focus on hydration. Maybe avoiding straight water initially. Diluted juices, soup broth, rice, toast, crackers. Return for intractable vomiting or diarrhea, marked increase in abdominal pain, associated fever. Zofran from [facility]. Prescriptions: No Action metoclopramide HCl 10 mg tablet 10 mg PO QID olanzapine 5 mg tablet 5 mg PO BID PRNQty: 10 0RF Follow Up/Referrals: Provider,Not a Local [Primary Care Provider] - Stand Alone Forms: [employer] Info Instructions
[2024-03-02 07:27] LABS: PCR FLU A Negative PCR FLU A (Negative); PCR FLU B Negative PCR FLU B (Negative); PCR RSV Negative PCR RSV (Negative); SARS PCR* Negative SARS-CoV-2 (Negative)
[2024-03-02] MEDS: 0.9 % SODIUM CHLORIDE 1000 ml 1,000 ML IV ×2 (07:34→08:03)
[2024-03-02] MEDS: ONDANSETRON 2 MG/ML inj 4 MG IVP (07:34)
--- OUTSIDE RECORDS SUMMARY | 2024-03-02 07:52 | XMS_ITS | Encounter Summary ---
Author Organization [facility] Address [address] [place] [address]. [place] [address] Care Team Providers Care Senior Front End Web Developer Name Role Phone No Ref-Primary, Physician Primary Care Provider Encounter Details Date Type Department Care Team (Late st Contact Info) Description 03/04/2021 Documentation Only INTERFACED REPORT Unknown, Provider Social History Tobacco Use Types Packs/Day Years Used Date Smoking Tobacco: Every Day Cigarettes Smokeless Tobacco: Never Alcohol Use Standard Drinks/Week [...] on filedocumented in this encounter Care Teams Senior Front End Web Developer Relationship Specialty Start Date End Date No Ref-Primary, Physician PCP - General 03/26/17 documented as of this encounter
--- OUTSIDE RECORDS SUMMARY | 2024-03-02 07:52 | XMS_ITS | Encounter Summary ---
Author Organization [facility] Address [address] [place] [address] Care Team Providers Care Checkroom Chief Name Role Phone None Reported, Pcp Primary Care Provider Unavail able Encounter Details Date Type Department Care Team (Late st Contact Info) Description 02/22/2024 Clinical Communication Department of Family Medicine, [facility], in [place], [place] [address] [facility] [phone] Chhaya Rosa, RAsim Social History Tobacco Use Types Packs/Day Years Used Date Smoking Tobacco: Former Cigarettes Smokeless Tobacco: Never Comments:stated stopped 2-3w eeks ago 06/10/2020 Alcohol Use Standard Drinks/Week Comments No 0 (1 standard drink = 0.6 oz pur e alcohol) Humiliation, Afraid, Rape, and Kick questionnair e Answer Date Recorded Within the last year, have y ou been afraid of your partner or ex-partner? No 12/09/2019 Within the last year, have y ou been humiliated or emotionally abused in other ways by your partner or ex-partner? No Within the last year, have y ou been kicked, hit, slapped, or otherwise physically hurt by your partner or ex-partner? No 12/09/2019 Within the last year, have y ou been raped or forced to have any kind of sexual activity by your partner or ex-partner? No 12/09/2019 Social Connection and Isolation Panel [NHANES] A nswer Date Recorded In a typical week, how many times do you talk on the phone with family, friends, or neighbors? Three times a week 12/09/19 20 How often do you get togethe r with friends or relatives? Twice a week 12/09/2019 Attends Yazidi Services Not on file 12/08 Active Member of Clubs or Organizations Not on f ile 12/09/2019 Attends Club or Organization Meetings Not on phylicia e 12/09/2019 Are you , , di vorced, , never , or living with a partner? Living with partner 12/09/2019 AUDIT-C Answer Date Recorded Q1: How often do you have a drink containing alc ohol? Never 12/09/2019 Average Number of Drinks Not on file 020 Frequency of Binge Drinking Not on file 11/13 Overall Financial Resource Strain (CARDIA) Answe r Date Recorded How hard is it for you to pa y for the very basics like food, housing, medical care, and heating? Somewhat hard 12/09/2019 PHQ-2 Answer Date Recorded PHQ-2 Score 1 09/10/2020 [facility] - Occupational Stress Questionnaire Answer Date Recorded Feeling of Stress Only a little 11/30/2018 Exercise Vital Sign Answer Date Recorde d On average, how many days pe r week do you engage in moderate to strenuous exercise (like a brisk walk)? 2 days 12/09/2019 On average, how many minutes do you engage in exercise at this level? 20 min 12/09/2019 Hunger Vital Sign Answer Date Recorded Worried About Running Out of Food in the Last Ye ar Never true 11/30/2018 Ran Out of Food in the Last Year Never true 11/30/2018 PRAPARE - Transportation Answer Date Re corded Lack of Transportation (Medical) No 11/30/2018 Lack of Transportation (Non-Medical) No 11/30/2018 Depression Answer Date Recor ded PHQ-9 Total Score (max 27) 6 09/10 Nutrition Answer Date Recorded Nutrition: EVOO Fat Source No 12/08 On average, how many serving s of fruits and vegetables do you eat per day (serving size is equal to 1 cup or approximately the size of a tennis ball)? 2-3 12/09/2019 Dental Answer Date Recorded Dental: Regular Dentist Unknown 12/20/19 23 Education Answer Date Recorded What is the highest level of school you have completed or the highest degree you have received? 10th grade 11/30/2018 Sex and Gender Information Value Date Recorded Sex Assigned at Female 08/11/2017 8:42 AM [employer] Gender Identity Female 08/11/2017 8:42 AM [employer] Sexual Orientation Straight 08/11/2017 8: 42 AM [employer] documented as of this encounter Miscellaneous Notes * Telephone Encounter - Chhaya Rosa R.N. - 02/22/2024 11:58 AM CDT Patient [facility] care with [facility], does not see Primary Care here. Please PCP elsewhere documented in this encounter Plan of Treatment Not on file documented as of this encounter Visit Diagnoses Not on filedocumented in this encounter Additional Health Concerns Assessment Noted Time PHQ-9 Depression Total Score: 6 09/11/19 21 1:30 PM CDT documented as of this encounter Care Teams Checkroom Chief Relationship Specialty Start Date End Date None Reported, Pcp PCP - General Family Medicine 02/22/24 documented as of this encounter
--- OUTSIDE RECORDS SUMMARY | 2024-03-02 07:52 | XMS_ITS | Referral Summary ---
Author Organization [facility] Address [address] [place] [address] Care Team Providers Care Bias Binding Folder Name Role Phone None Reported, Pcp Primary Care Provider Unavail able Source Comments Patient records contain information from all sites at [facility]. For routine questions regarding patient records, call [phone] during business hours, M-F 8:00 AM - 5:00 PM Central Time. Record requests for emergency care only can be directed to [phone] at any time.[facility] Encounters Date Type Department Care Team Description 02/22/2024 Clinical Communication Department of Family Medicine, [facility], in [place], [place] [address] [place] [id number] Chhaya Rosa R.N. 01/18/2024 Orders Only [facility] P[facility] Layton Doan M.D. from Last 3 Months Allergies Active Allergy Reactions Criticality Noted Date Comments Amoxicillin Rash 08/11/2016 Medications Medication Sig Dispensed Refills Start Date End Date Status no115/iron/folic acid ( 19 ORAL) Take by mouth. Active calcium carbonate (TUMS) 500 mg (200 mg calcium) chewable tablet Chew 1 tablet daily. Acti ve cholecalciferol (VITAMIN D3) 1,250 mcg (50,000 Unit) capsule cholecalciferol (vitamin D3) 1,250 mcg (50,000 unit) capsule TK 1 C PO ONCE A WEEK Active dextroamphetamine-am phetamine (AdderalL) 20 mg tablet 1 tablet Orally once daily Active HYDROcodone-acetamin ophen (NORCO) 5-325 mg per tablet Take 1 tablet by mouth every 4 (four) hours as needed. 09/20/2023 Active metoclopramide (REGLAN) 10 mg tablet TAKE 1 TABLET BY MOUTH FOUR TIMES A DAY DIRECTED Active OLANZapine (ZyPREXA) 5 mg tablet Take 1 tablet by mouth 2 (two) times a day. 07/23/2023 Active ondansetron ODT (ZOFRAN-ODT) 4 mg disintegrating tablet Dissolve 4 mg in the mouth every 8 (eight) hours as needed. 07/20/2023 Active prochlorperazine (COMPAZINE) 25 mg suppository Insert 25 mg into the rectum every 12 (twelve) hours as needed. 06/06/2021 Active prochlorperazine (COMPAZINE) 10 mg tablet Take 10 mg by mouth every 8 (eight) hours as needed. 02/27/2021 Active promethazine (PHENERGAN) 12.5 mg tablet promethazine 12.5 mg tablet TAKE 1 TO 2 TABLETS BY MOUTH EVERY 4 HOURS NEEDED FOR NAUSEA OR VOMITING Active promethazine (PHENERGAN) 25 mg suppository Insert 25 mg into the rectum. 03/05/2021 Active Active Problems Patient Care Coordination No te Formatting of this note migh t be different from the original. OB education completed. Pre-reg completed at [facility]. EDC: 08/01/20 provider: gas distribution supervisor FOB involved: Partha ricketts OB labs O RH factor: negative Antibody screen: negative HBsAg: negative HIV: negative Syphilis: negative Rubella: immune Varicella: non-immune TSH: 0.4 Hgb: 12.4 Hct: 36.1 Platelets: 226 Pap smear: Glucose screen: GBS culture: Boy friend: Partha Children: no Work: [employer] on file for: liliam Chavis Cell #: [phone] Problem Noted Date Diagnosed Date Deficiency Vitamin D 03/12/2020 Overview (06/10/2020): She has not completed cholecalciferol 50,000 IU weekly for 12 weeks. She has 2 of these left and was encouraged to complete this. Rx for daily replacement will need to be sent when she finishes this. Type O Blood Rhesus Negative 02/08/2020 Overview (06/01/2020): Plan rhogam with any bleeding in , at 28 weeks, and in the period if the baby is Rh positive. Anterior Cruciate Ligament Reconstruction Status Post 09/30/2018 Complex Tear Medial Meniscus Current Injury Left Knee Initial 09/13/2018 Pain Knee Left 06/10/2018 Attention Deficit Disorder Inattentive 8 Nicotine Dependence Cigarettes 08/12/2017 Overview (06/10/2020): She quit several weeks ago. Cannabis Mild Use Disorder (Abuse) Uncomplicated 08/12/2017 Overview (06/10/2020): She was using regularly and this was the likely cause of her intractable nausea and vomiting. She reports that she has stopped using. Nausea and vomiting have resolved since she was discharged from the hospital. UDS was + for THC at the time of her initial admission. 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 UDS in the the hospital at the time of her recent admission was negative for stimulants. Resolved Problems Problem Noted Date Diagnosed Date Resolved Date Discrepancy Uterine Size Timothy e 07/04/2020 09/10/2020 Overview (07/04/2020): Ultrasound on 07/04 shows growth at 91st percentile. Nausea And Vomiting 06/01/2020 06/04/20 20 Overview (06/01/2020): She was recently admitted, discharged, then readmitted and discharged for intractable nausea. She reports that her symptoms have resolved. This was likely related to THC use, as other causes were excluded. She did have an elevated WBC initially that returned to normal during the 2nd admission, normal LFTs, and normal RUQ US. Hypertension Gestational 05/22/2020 Overview (06/10/2020): Mild, based upon elevated BP while admitted for nausea and vomiting. Normal HELLP labs, no symptoms of preeclampsia and urine protein/creatinine ratio does not meet criteria for preeclampsia. Will plan: - daily kick counts and BP checks at home and she should enter BPs into the portal, - twice weekly BP checks once in clinic the other from home - weekly modified BPP, CBC, LFTs, and urine protein/creatinine ratio. - Growth US every 3 weeks and was recently done with Dr. Flores on 06/04/2020 and showed EFW of 2291 gm with growth at >90th%ile. - Plan delivery at 37 weeks due to this, earlier if she progresses to severe disease If preeclampsia develops, NSTs will need to be twice weekly. Modified BPP reassuring today. Need Vaccine Immunization Varicella 03/12/2020 09/10/2020 Overview (03/12/2020): Varicella non-immune, plan vaccination . Encounter For Supervision Of Normal First Unspecified Trimester 02/08/2020 02/08/20 20 Examination Normal First Third Trimester 02/08/2020 09/10/2020 Overview (06/01/2020): OB ed up to date. Has NEST supplies including doppler. Hyperemesis Gravidarum With Metabolic Disturbance 12/14/2019 06/04/2020 Sprain Knee Anterior Cruciat e Ligament Initial Left 09/13/2018 06/04/2020 Hypokalemia 06/15/2018 06/04/2020 Overview (06/01/2020): Related to nausea and vomiting. Resolved at the time of discharge from the hospital. Management Contraception Prescription 08/12/2017 02/08/2020 Behavior Sexual High Risk Heterosexual 08/06/2015 09/10/2020 Other Specified Behavioral A nd Emotional Disorders With Onset Usually Occurring In Childhood And Adolescence 07/14/2007 09/10/2020 Overview (06/01/2020): Overview: Attention Deficit Disorder - Diagnosed 2007 Attention Deficit Disorder - Diagnosed 2007 Immunizations Name Administration Dates Next Due 4vHPV (discontinued) 09/08/2013 9vHPV 05/05/2017,08/06/2015,07/11/2013 DTaP (Infanrix, Tripedia) 02/06/2004,,1999,1999,1999 HepA Adult 08/29/2018,09/08/2013 HepA Pediatric/Adolescent 08/06/2015 HepB Pediatric/Adolescent 08/29/2018,10/1999,1999,1998,1999 Hib (PRP-T) (ACTHIB, HIBERIX) 06/28/2000, 000,1999 IPV 02/06/2004, 1,1999,1998 Influenza Split 04/08/2015,08/25/2013 Influenza, Injectable, Quadrivalent 05/05/2017 Influenza, Unspecified 05/05/2017,04/08/2015, MCV4 (Menactra)(Discontinued) 01/09/2011 MCV4 (Menveo) 08/06/2015 MMR 02/06/2004,06/28/2000 Rho (D) Immune Globulin (IM only) 05/15/2020 Tdap 05/15/2020,01/09/2011 TRINA 08/29/2009,03/02/2000 influenza vaccine quad (FLUZONE/FLUARIX) (6 months and older)(PF) 03/01/2018 Social History Tobacco Use Types Packs/Day Years Used Date Smoking Tobacco: Former Cigarettes Smokeless Tobacco: Never Tobacco Cessation:Counseling Given: Yes Comments:stated stopped 2-3weeks ago 06/10/2020 Alcohol Use Standard Drinks/Week Comments [...] or relatives? Twice a week 12/09/2019 Attends Confucianism Services Not on file 12/08 Active Member [...] Answer Date Recorded PHQ-2 Score 1 09/10/2020 [facility] - Occupational [...] Sex Assigned at Female 08/11/2017 8:42 AM RIFLE CASE REPAIRER Gender Identity Female 08/11/2017 8:42 AM RIFLE CASE REPAIRER Sexual Orientation Straight 08/11/2017 8: 42 AM RIFLE CASE REPAIRER Last Filed Vital Signs Vital Sign Reading Time Taken Comments Blood Pressure 104/68 09/10/2020 1:27 PM CDT Pulse 90 03/02/2019 3:28 PM CDT Temperature 36.9 ??C (98.4 ??F) 12/26/2018 3:22 PM CD T Respiratory Rate 16 12/26/2018 3:22 PM CDT Oxygen Saturation 98% 12/22/2018 2:07 PM CDT Inhaled Oxygen Concentration - - Weight 86.5 kg (190 lb 11.2 oz) 09/10/2020 1:27 PM CDT Height 167 cm (5' 5.75) 12/06/2018 9:41 AM CDT Body Mass Index 31.02 12/06/2018 9:41 AM CDT Plan of Treatment Not on file Medical Devices Implanted Type Area Windows And Doors Installer Device Identifier Shelf Expiration Date Model / Serial / Lot Gynecologic Other-09/23/2017 Implanted:Qty: 1 on 09/23/2017 by Yessenia Mayfield, ABEL, C.N.P. Gynecologic Other Left: Jamshid Urbina 10/23/2018 / / [id number] Description:Nexplanon Gynecologic Other-09/10/2020 Implanted:09/10 by Jaden Flores Jr., M.D. (Quantity not on file) Gynecologic Other Left: Jamshid Urbina 12/12/2022 / / [id number] Procedures Procedure Name Priority Date/Time Associated Diagnosis Comments THINPREP SCREEN HPV REFLEX Routine 09/10/2020 2:16 PM CDT Exam (HCC) COMPREHENSIVE METABOLIC PANEL, S/P Routine 07/29/2020 9:51 AM RIFLE CASE REPAIRER Examination Normal First Third Trimester HIV-1/-2 AG AND AB SCRN, PLASMA Routine 12/14/2019 4:35 PM CDT Examination Normal First First Trimester CHLAMYDIA/GONORRHOEAE AMPLIFIED RNA Routine 12/14/2019 4:16 PM CDT Examination Normal First First Trimester from Last 3 Months or Most Recently Relevant to Health Maintenance Results * ThinPrep Screen HPV Reflex (09/10/2020 2:16 PM CDT) 09/17/2020 4:19 PM CDT [facility] Report electronically signed by GIACOMO Ross(ASCP) I verify that I have examined all relevant slides/materials for the specimen(s) and rendered or confirmed the diagnosis. 09/17/2020 4:19 PM CDT [facility] Gross Description Received specimen in a ThinPrep vial. 09/17/2020 4:19 PM CDT [facility] Pap Test Source Cervical/Endocervi sindhu 09/17/2020 4:19 PM CDT [facility] Clinical History post 021 4:19 PM CDT [facility] Menstrual Status(LMP, PM, ) post 09/17/2020 4:19 PM CDT [facility] Hormone Therapy/Contracep tives none 09/17/2020 4:19 PM CDT [facility] Interpretation Cervical/Endocervi sindhu ??(ThinPrep): Satisfactory for Evaluation Negative for Intraepithelial Lesion or Malignancy 09/17/2020 4:19 PM CDT [facility] Varies (Cervix/Endocerv ix) 09/10/2020 2:16 PM CDT 09/11/2020 8:25 AM CDT Jaden Flores Jr., M.D. LAB PAP PATHDX ORDERABLES [facility] [address] [place] [address], [facility] [address] [place] [address] * HIV-1/-2 Ag and Ab Scrn, Plasma (12/14/2019 4:35 PM CDT) HIV Ag/Ab Scrn, P Negative Negative 12/18/2019 3:19 AM CDT [facility] Comment: Negative result does not rule out HIV infection. If exposure to HIV infection occurred <14 days ago, contact the laboratory to request addition of HIV-1 RNA detection / quantification test. HIV-1 p24 Ag Scrn, P Negative Negative 12/18/2019 3:19 AM CDT [facility] Comment: Negative result does not rule out HIV infection. If exposure to HIV infection occurred <14 days ago, contact the laboratory to request addition of HIV-1 RNA detection / quantification test. HIV-1 Ab Scrn, P Negative Negative 12/18/2019 3:19 AM CDT [facility] Comment: Negative result does not rule out HIV infection. If exposure to HIV infection occurred <14 days ago, contact the laboratory to request addition of HIV-1 RNA detection / quantification test. HIV-2 Ab Scrn, P Negative Negative 12/18/2019 3:19 AM CDT [facility] Comment: Negative result does not rule out HIV infection. If exposure to HIV infection occurred <14 days ago, contact the laboratory to request addition of HIV-1 RNA detection / quantification test. Blood (Blood, Venous) 12/14/2019 4:35 PM CDT 12/15/2019 11:15 AM CDT Jaden Flores Jr., M.D. LAB MICROBIOLO GY - BLOOD ORDERABLES [facility] [address] [place] [id number], [facility] [address] [address] * Chlamydia / Gonorrhoeae Amplified RNA (12/14/2019 4:16 PM CDT) Source Swab, Vagina 12/15/2019 10:50 AM CDT [facility] Chlamydia trachomatis amplified RNA Negative Negative 12/15/2019 10:50 AM CDT [facility] Source Swab, Vagina 12/15/2019 10:50 AM CDT [facility] Neisseria gonorrhoeae amplified RNA Negative Negative 12/15/2019 10:50 AM CDT [facility] Varies (Vagina) 12/14/2019 4 :16 PM CDT 12/14/2019 7:12 PM CDT Jaden Flores Jr., M.D. LAB MICROBIOLO GY - GENERAL ORDERABLES [facility] [address] [place] [address], [facility] [place] [address] [place] [address] from Last 3 Months or Most Recently Relevant to Health Maintenance Care Teams Bias Binding Folder Relationship Specialty Start Date End Date None Reported, Pcp PCP - General Family Medicine 02/22/24
--- OUTSIDE RECORDS SUMMARY | 2024-03-02 07:52 | XMS_ITS | Patient Health Record ---
Author Organization [facility] Address [address] [place] [address] Care Team Providers Care Commercial Artist Name Role Phone Kwame Simon Primary Care Provider Unavailab le Allergies Allergen (clinical drug ingredient) Drug/Non Drug Allergy documented on EMR Reaction Allergy Type Onset Date Status amoxicillin Amoxicillin Childhood Allergy Drug Allergy Active Reason For Referral No Information Medications Medication SIG (Take, Route, Fr equency, Duration) Notes Start Date End Date Status Adderall 20 MG 1 tablet Orally once daily Active Social History Tobacco Use: Social History Observation Description Date Details (start date - stop date) Current Smoker NA - NA Tobacco Use/Smoking Question Answer Notes Are you a current smoker Problems Problem Type SNOMED Code ICD Code Onset Dates Problem Status W/U Status Risk Notes Problem [id number] Abnormal uterine bleeding (AUB) (N93.9) Active confirmed Plan Of Treatment No Information Insurance Providers Payer Name Payer Address Payer Phone Subscriber Number Group Number Insured Name Patient Relationship to Insured Coverage Start Date Coverage End Date UMR (INS BILL) [address] [address] [place] [phone] [id number] Selma Hoffman Self - patient is the insured Medical (General) History Medical History History ICD Code ADHD Surgical History Surgery Date(Month/Year) Left Middle Finger Fx 2017
--- OUTSIDE RECORDS SUMMARY | 2024-03-02 07:52 | XMS_ITS | Clinical Summary ---
Author Organization [facility] Address [address] [place] [address] Care Team Providers Care Clinical Biostatistics Director Name Role Phone None Reported, Pcp Primary Care Provider Unavail able Source Comments Patient records contain information from all sites at [facility]. For routine questions regarding patient records, call [phone] during business hours, M-F 8:00 AM - 5:00 PM Central Time. Record requests for emergency care only can be directed to [phone] at any time.[facility] Allergies Active Allergy Reactions Criticality Noted Date [...] original. OB education completed. Pre-reg completed at [facility]. EDC: 08/01/20 provider: home extension agent FOB involved: Partha ricketts OB labs O RH factor: negative Antibody screen: negative HBsAg: negative HIV: negative Syphilis: negative Rubella: immune Varicella: non-immune TSH: 0.4 Hgb: 12.4 Hct: 36.1 Platelets: 226 Pap smear: Glucose screen: GBS culture: Boy friend: Partha Children: no Work: [employer] on file for: boyfrienjuani Chavis Cell #: [phone] Problem Noted Date Diagnosed Date Deficiency Vitamin [...] (06/01/2020): Overview: Attention Deficit Disorder - Diagnosed 2008 Attention Deficit Disorder - Diagnosed 2008 Encounters Date Type Department Care Team Description 02/22/2024 Clinical Communication Department of Family Medicine, [facility], in [place] [address] [place] [phone] Chhaya Rosa, RKatN. 01/18/2024 Orders Only [facility] PCP [facility] Layton Lloyd M.D. from Last 3 Months Immunizations Name Administration Dates Next Due 4vHPV [...] quad (FLUZONE/FLUARIX) (6 months and older)(PF) 03/01/2018 Family History Medical History Relation Name Comments No Known Problems Father Breast cancer Grandmother Diabetes Grandmother Breast cancer Maternal Grandmother Heart disease Mother Hypertension Mother Anesthesia problems Neg Hx Relation Name Status Comments Father Alive Grandmother Maternal Grandmother Mother Alive Social History Tobacco Use Types Packs/Day Years [...] or relatives? Twice a week 12/09/2019 Attends [employer] Services Not on file 12/08 Active Member [...] Answer Date Recorded PHQ-2 Score 1 09/10/2020 [facility] Occupat ional Health - Occupational Stress [...] Date Recorded Dental: Regular Dentist Unknown 12/20/19 Education Answer Date Recorded What is the highest level of school you have completed or the highest degree you have received? 10th grade 11/30/2018 Sex and Gender Information Value Date Recorded Sex Assigned at Female 08/11/2017 8:42 AM EPOXY SPECIALIST Gender Identity Female 08/11/2017 8:42 AM EPOXY SPECIALIST Sexual Orientation Straight 08/11/2017 8: 42 AM EPOXY SPECIALIST Last Filed Vital Signs Vital Sign Reading [...] 12/06/2018 9:41 AM CDT Plan of Treatment Health Maintenance Due Date Last Done Comments Hepatitis C Screening 1999 Depression Screening (Annual PHQ-2) 06/14/2023 Cervical Cancer Screening 09/11/2023 09/10/2020 COVID-19 Vaccine ( season) 2024 Influenza Vaccine (#1) 2024 8, 05/05/2017, 05/05/2017, Additional history exists Glucose Test for Med Monitoring 01/03/2025 01/04/2024, 12/14/2023, 07/20/2023, Additional history exists DTaP,Tdap,and Td Vaccines (8 - Td or Tdap) 05/15/2030 05/15/2020, 01/09/2011, 02/06/2004, Additional history exists HPV Vaccines Completed 05/05/2017, 07/16, 09/08/2013, Additional history exists Hepatitis A Vaccines Completed 08/29/2018, 08/06/2015, 09/08/2013 Hepatitis B Vaccines Completed 08/29/2018, 1999, 1999, Additional history exists Chlamydia and Gonorrhea Screening Discontinued 12/14/2019, 08/29/2018, 08/16/2017 HIV Screening Completed 12/14/2019 Varicella Vaccines Completed 08/01/2020, 0 08/29/2009, 03/02/2000 Pneumococcal vaccine (0-64 years) Aged Out No longer eligible based on patient's age to complete this topic Medical Devices Implanted Type Area Inspector And Hand Packager Device Identifier Shelf Expiration Date Model / Serial / Lot Gynecologic Other-09/23/2017 Implanted:Qty: 1 on 09/23/2017 by Yessenia Mayfield APRN, C.N.P. Gynecologic Other Left: [facility] 10/23/2018 / / [id number] Description:Nexplanon Gynecologic Other-09/10/2020 Implanted:09/10 by Jaden Flores Jr., M.D. (Quantity not on file) Gynecologic Other Left: [facility] 12/12/2022 / / [id number] Procedures Procedure Name Priority Date/Time Associated Diagnosis Comments THINPREP SCREEN HPV REFLEX Routine 09/10/2020 2:16 PM CDT Exam (HCC) COMPREHENSIVE METABOLIC PANEL, S/P Routine 07/29/2020 9:51 AM EPOXY SPECIALIST Examination Normal First Third Trimester HIV-1/-2 AG [...] Flores Jr., M.D. LAB PAP PATHDX ORDERABLES Performing Organization Address [facility]/State/ZIP Co de Phone Number [facility] [address] [place] [address], [facility] [address] [place] [address] * HIV-1/-2 Ag and Ab Scrn, Plasma [...] M.D. LAB MICROBIOLO GY - BLOOD ORDERABLES Performing Organization Address [facility] Co de Phone Number [facility] [address] [place] [address], [facility] in [address] [address] * Chlamydia / Gonorrhoeae Amplified RNA (12/14/2019 [...] M.D. LAB MICROBIOLO GY - GENERAL ORDERABLES Performing Organization Address City/[facility] Co de Phone Number [facility] [address] [place] [address], [place] TO [facility] in [address] [address] from Last 3 Months or Most Recently Relevant to Health Maintenance Care Teams Clinical Biostatistics Director Relationship Specialty Start Date End Date None Reported, Pcp PCP - General Family Medicine 02/22/24
--- OUTSIDE RECORDS SUMMARY | 2024-03-02 07:52 | XMS_ITS ---
Author Organization [facility] Address [address] [place] [address] Care Team Providers Care Health Physics Technician Name Role Phone Unavailable Unavailable Unavailable Surgery Details Not on file Complications Check Surgery Details section. Procedure Estimated Blood Loss Check Surgery Details section. Procedure Findings Check Surgery Details section. Procedure Specimens Taken Check Surgery Details section.
--- OUTSIDE RECORDS SUMMARY | 2024-03-02 07:52 | XMS_ITS | Clinical Summary ---
Author Organization [facility] Address [address] [place] [address] Care Team Providers Care Transmission Calibration Engineer Name Role Phone No Ref-Primary, Physician Primary Care Provider Allergies Active Allergy Reactions Criticality Noted Date Comments Amoxicillin 08/11/2016 Medications Medication Sig Dispensed Refills Start Date End Date Status Etonogestrel (NEXPLANON SC) Active metoclopramide (REGLAN) 10 MG tablet Take 1 tablet (10 mg) by mouth 4 times daily (before meals and nightly) 20 tablet 03/04/2021 Active promethazine (PHENERGAN) [address] 1 suppository (25 mg) rectally every 6 hours as needed for nausea 10 suppository 03/05/2021 Active Immunizations Name Administration Dates Next [...] 1999 ANNUAL REVIEW OF HM ORDERS 1999 Pneumococcal Vaccine: Pediatrics (0 to 5 Years) and At-Risk Patients (6 to 64 Years) (1 of 2 - PCV) 2005 HIV SCREENING 2014 HEPATITIS C SCREENING 2017 YEARLY PREVENTIVE VISIT 09/16/2018 09/16/2017 PAP 02/13/2020 PHQ-2 (once per calendar year) 2023 COVID-19 Vaccine ( season) 2024 INFLUENZA VACCINE (#1) 2024 8, 05/05/2017, 05/05/2017, Additional history exists DTAP/TDAP/TD IMMUNIZATION (8 - Td or Tdap) 05/15/2030 05/15/2020, 01/09/2011, 02/06/2004, Additional history exists MENINGITIS IMMUNIZATION Completed 08/06/2015, 01/09 HPV IMMUNIZATION Completed 05/05/2017, , 09/08/2013, Additional history exists HEPATITIS B IMMUNIZATION Completed 019, 1999, 1999, Additional history exists RSV MONOCLONAL ANTIBODY Aged Out No l onger eligible based on patient's age to complete this topic Care Teams Transmission Calibration Engineer Relationship Specialty Start Date End Date No Ref-Primary, Physician PCP - General 03/26/17
--- OUTSIDE RECORDS SUMMARY | 2024-03-02 07:52 | XMS_ITS | Encounter Summary ---
Author Organization [facility] Address [address] [place] [address] Care Team Providers Care Animation Director Name Role Phone Layton Lloyd M.D. Primary Care Provider Encounter Details Date Type Department Care Team (Late st Contact Info) Description 01/18/2024 Orders Only [facility]NT Layton Lloyd M.D. [address] [facility] [place] [id number] Social History Tobacco Use Types Packs/Day Years [...] or relatives? Twice a week 12/09/2019 Attends [employer] Not on file 12/08 Active Member [...] Answer Date Recorded PHQ-2 Score 1 09/10/2020 [facility] - Occupational Stress [...] Sex Assigned at Female 08/11/2017 8:42 AM CONVICT GUARD Gender Identity Female 08/11/2017 8:42 AM CONVICT GUARD Sexual Orientation Straight 08/11/2017 8: 42 AM CONVICT GUARD documented as of this encounter Plan of Treatment Not on file documented as of this encounter Visit Diagnoses Not on filedocumented in this encounter Additional Health Concerns Assessment Noted Time PHQ-9 Depression Total Score: 6 09/11/19 21 1:30 PM CDT documented as of this encounter Care Teams Animation Director Relationship Specialty Start Date End Date Layton Lloyd M.D. [address] [place] [phone] PCP - General 07/25/20 02/21/24 documented as of this encounter
--- OUTSIDE RECORDS SUMMARY | 2024-03-02 07:52 | XMS_ITS | Encounter Summary ---
Author Organization [facility] Address [address] [place] [address]. [place] [address] Care Team Providers Care Ultrasonic Welding Machine Operator Name Role Phone No Ref-Primary, Physician Primary [...] on filedocumented in this encounter Care Teams Ultrasonic Welding Machine Operator Relationship Specialty Start Date End Date No Ref-Primary, Physician PCP - General 03/26/17 documented as of this encounter
--- OUTSIDE RECORDS SUMMARY | 2024-03-02 07:52 | XMS_ITS | Referral Summary ---
Author Organization [facility] Address [address] [place] [id number] Care Team Providers Care Structural Metal Worker Name Role Phone No Ref-Primary, Physician Primary [...] of Treatment Not on file Care Teams Structural Metal Worker Relationship Specialty Start Date End Date No Ref-Primary, Physician PCP - General 03/26/17
[2024-03-02] MEDS: KETOROLAC 30 MG/ML inj IVP (08:58)
[2024-03-02] MEDS: HYOSCYAMINE SULFATE 0.125 MG TAB 0.25 MG SUBLINGUAL (08:58)
== END 2024-03-02 09:30 | disposition home or self-care (01) ==
PROVIDERS: Emergency Provider Family Medicine
DX: R11.10 Vomiting, unspecified (principal); R19.7 Diarrhea, unspecified; R10.9 Unspecified abdominal pain
CPT/HCPCS: 87631; 96374; 96375; 99283; 99284; A9270; J1885; J2405; J7030